=== PATIENT | male | born 1990 | race African-American/Black ===

== ENCOUNTER → 2018-02-09 | Emergency (ER) | payer OTHER | END | disposition left against medical advice (07) | LOC: ER 14:41 | DX: Z53.20 Procedure and treatment not carried out because of patient's decision for unspecified reasons (principal) ==

== ENCOUNTER 2019-01-04 20:54 | Emergency (ER) | payer OTHER ==
[~2019-01-04] VITALS: Ht 162.6 cm; Wt 120.2 kg
== END 2019-01-05 00:07 | disposition home or self-care (01) ==
LOC: ER 20:54
DX: K29.70 Gastritis, unspecified, without bleeding (principal)

== ENCOUNTER 2019-09-02 21:37 | Emergency (ER) | payer OTHER ==
[~2019-09-02] VITALS: Ht 165.1 cm; Wt 90.7 kg
[2019-09-03] MEDS ORDERED: ZOFRAN4 MG PO (05:20)
[2019-09-03] MEDS ORDERED: INTESTINEX680 M1 PO (05:20)
[2019-09-03] MEDS ORDERED: PEPCID40 MG PO (05:20)
== END 2019-09-03 05:38 | disposition home or self-care (01) ==
LOC: ER 21:37
DX: K52.9 Noninfective gastroenteritis and colitis, unspecified (principal)